=== PATIENT | female | born 1945 | race Caucasian/White ===

== ENCOUNTER 2017-05-29 13:52 | Emergency (ER) | payer MEDICARE ==
[2017-05-29 14:38] VITALS: BP 150/88
--- NOTE | 2017-05-29 14:54 | UC ---
FLU HPI - HPI Summary HPI Summary: Pt presents with sore throat, body aches, and headache that started yesterday. She tells me that her grandchildren are sick with strep throat. She has not taken anything OTC. Denies fever, chills, cough, SOB, chest pain, abdominal pain , n/v/d/c. - History of Current Complaint Chief Complaint: UCRespiratory Stated Complaint: SORE THROAT, BODY ACHES Time Seen by Provider: 05/29/17 14:51 Hx Obtained From: Patient Onset/Duration: Sudden Onset Severity Currently: Moderate Severity Initially: Moderate Pain Intensity: 6 Pain Scale Used: 0-10 Numeric - Allergy/Home Medications Allergies/Adverse Reactions: Allergies Allergy/AdvReac Type Severity Reaction Status Date / Time codeine Allergy See Comment Verified 05/29/17 14:39 Penicillins Allergy Anaphylatic Verified 05/29/17 14:39 Shock propoxyphene [From Darvon] Allergy See Comment Verified 05/29/17 14:39 PMH/Surg Hx/FS Hx/Imm Hx Previously Healthy: Yes Cardiovascular History: Hypertension - Surgical History Surgical History: None - Family History Known Family History: Positive: Unknown - Social History Occupation: Employed Full-time Lives: With Family Alcohol Use: Occasionally Substance Use Type: None Smoking Status (MU): Never Smoked Tobacco Review of Systems Constitutional: Other - Body aches Skin: Negative Eyes: Negative ENT: Sore Throat Respiratory: Negative Cardiovascular: Negative Gastrointestinal: Negative Neurovascular: Negative Musculoskeletal: Negative Neurological: Headache Psychological: Negative All Other Systems Reviewed And Are Negative: Yes Physical Exam Triage Information Reviewed: Yes Appearance: Well-Appearing, No Pain Distress, Obese Vital Signs: Initial Vital Signs Temp 100.3 F 05/29/17 14:31 Pulse 106 05/29/17 14:31 Resp 18 05/29/17 14:31 BP 150/88 05/29/17 14:31 Pulse Ox 99 05/29/17 14:31 Vital Signs Reviewed: Yes Eyes: Positive: Conjunctiva Clear. Negative: Conjunctiva Inflamed, Discharge ENT: Positive: Hearing grossly normal, Pharyngeal erythema, TMs normal, Uvula midline. Negative: Nasal congestion, Nasal drainage, TM bulging, TM dull, TM red, Tonsillar swelling, Tonsillar exudate, Hoarse voice, Sinus tenderness Neck: Positive: Supple, Nontender, Other: - Anterior lymphadenopathy Respiratory: Positive: Lungs clear, Normal breath sounds, No respiratory distress, No accessory muscle use Cardiovascular: Positive: RRR, No Murmur, Pulses Normal Neurological: Positive: Alert Psychological: Positive: Age Appropriate Behavior Skin: Negative: rashes Flu Course/Dx - Course Course Of Treatment: POC strep positive. Flu negative. Azithromycin - Differential Dx/Diagnosis Provider Diagnoses: Strep Pharyngitis Discharge - Discharge Plan Condition: Stable Disposition: HOME Prescriptions: Azithromycin TAB* [Zithromax TAB (Z-ALIZA) 250 mg #6 tabs] 2 tab PO .TODAY, THEN 1 DAILY #1 aliza Patient Education Materials: Strep Throat (DC) Referrals: Adelia Duke MD [Primary Care Provider] - Additional Instructions: If you develop a fever, shortness of breath, chest pain, new or worsening symptoms - please call your PCP or go to the ED. Your blood pressure was high at todays visit. Please see your primary provider within 4 weeks for recheck and re-evaluation.
== END 2017-05-29 15:43 | disposition home or self-care (01) ==
LOC: UCEAST 13:52
DX: J02.0 Streptococcal pharyngitis (principal); I10 Essential (primary) hypertension; Z88.5 Allergy status to narcotic agent; Z88.0 Allergy status to penicillin
CPT/HCPCS: 87502; 87651; 99212; G0463